=== PATIENT | female | born 1940 | race Caucasian/White ===

== ENCOUNTER 2019-08-07 08:56 | Emergency (ER) | payer MEDICARE ==
[2019-08-07 09:08] VITALS: BP 148/93
--- NOTE | 2019-08-07 10:09 | UC ---
Skin Complaint HPI - HPI Summary HPI Summary: 79 year old with bee sting to right ankle on Monday. Patient was working outside when she was stung by a yellow jacket, had to swat insect off her, immediate pain and swelling around outside ankle. She noted swelling afterwards , which has increased mildly since that time. Denies pain, no difficulty walking, minimal discomfort with moving against swelling. NO other complaints , no throat swelling, no SOB - History of Current Complaint Chief Complaint: UCSkin Time Seen by Provider: 08/07/19 10:09 Stated Complaint: BEE STING Hx Obtained From: Patient ?: No Onset/Duration: Sudden Onset Skin Exposure Onset/Duration: Days Ago - monday Onset Severity: Mild Current Severity: Mild Pain Intensity: 3 Pain Scale Used: 0-10 Numeric Location: Discrete - right ankle, laterally - Allergy/Home Medications Allergies/Adverse Reactions: Allergies Allergy/AdvReac Type Severity Reaction Status Date / Time peanut Allergy Diarrhea Verified 08/07/19 09:02 sulfamethoxazole Allergy Rash Verified 08/07/19 09:02 [From Bactrim] trimethoprim [From Bactrim] Allergy Rash Verified 08/07/19 09:02 Home Medications: Home Medications Diphenhydramine HCl/Zinc Acet [Benadryl Itch Stopping Crm] 28.3 gm TP ONCE 08/07 [History Confirmed 08/07/19] diPHENhydraMINE PO* [Benadryl PO 25 MG TAB*] 25 mg PO Q6H PRN 08/07/19 [History Confirmed 08/07/19] PMH/Surg Hx/FS Hx/Imm Hx Previously Healthy: Yes - Surgical History Surgical History: Yes Surgery Procedure, Year, and Place: HYSTERECTOMY, 1994, [facility] – [place] - Family History Known Family History: Positive: Non-Contributory - Social History Alcohol Use: None Substance Use Type: None Smoking Status (MU): Never Smoked Tobacco Have You Smoked in the Last Year: No Review of Systems All Other Systems Reviewed And Are Negative: Yes Constitutional: Positive: Fatigue Skin: Positive: Rash - swelling, redness ENT: Negative: Sore Throat Respiratory: Positive: Negative. Negative: Shortness Of Breath, Cough Neurological: Positive: Negative Psychological: Positive: Negative Is Patient Immunocompromised?: No Physical Exam Triage Information Reviewed: Yes Appearance: Well-Appearing, No Pain Distress, Well-Nourished Vital Signs: Initial Vital Signs Temp 97.8 F 08/07/19 09:03 Pulse 84 08/07/19 09:03 Resp 16 08/07/19 09:03 BP 148/93 08/07/19 09:03 Pulse Ox 98 08/07/19 09:03 Vital Signs Reviewed: Yes Eyes: Positive: Conjunctiva Clear ENT: Positive: Hearing grossly normal Musculoskeletal Exam: Normal Neurological Exam: Normal Neurological: Positive: Other: - SITLT distal to ankle Psychological Exam: Normal Skin: Positive: Other - lateral ankle to toes with moderate edema, non-pitting, minimal erythema, non-tender, on lateral aspect of foot. FUll ROM of toes, ankle against resistence without pain. minimal warmth. PT 2+. Skin intact, no drainage, vesicles seen. Course/Dx - Course Course Of Treatment: Allergic reaction to insect sting - Prednisone 30mg daily x 3 days - Continue to monitor area for increased redness, swelling, pain- possible signs of infection, go to ER or return for evaluation - Follow up with Dr. Matthews as needed - Increase fluid intake - Elevate leg, ice as needed - Benadryl for itch as needed - Differential Diagnoses - Skin Complaint Differential Diagnoses: Angioedema, Cellulitis, Viral Exanthem - Diagnoses Provider Diagnosis: Allergic reaction to bee sting Discharge ED - Sign-Out/Discharge Documenting (check all that apply): Patient Departure All imaging exams completed and their final reports reviewed: No Studies - Discharge Plan Condition: Good Disposition: HOME Prescriptions: predniSONE TAB* [Deltasone 10 MG TAB*] 3 tab PO DAILY #9 tab Patient Education Materials: General Allergic Reaction (ED) Referrals: Neyda Matthews MD [Primary Care Provider] - Additional Instructions: Allergic reaction to insect sting - Prednisone 30mg daily x 3 days - Continue to monitor area for increased redness, swelling, pain- possible signs of infection, go to ER or return for evaluation - Follow up with Dr. Matthews as needed - Increase fluid intake - Elevate leg, ice as needed - Benadryl for itch as needed - Billing Disposition and Condition Condition: GOOD Disposition: Home
== END 2019-08-07 10:30 | disposition home or self-care (01) ==
LOC: UCEAST 08:56
DX: T63.441A Toxic effect of venom of bees, accidental (unintentional), initial encounter (principal); Y92.9 Unspecified place or not applicable; Z88.2 Allergy status to sulfonamides
CPT/HCPCS: 99202; G0463

== ENCOUNTER 2023-12-09 18:26 | Inpatient (IN) ==
[2023-12-09] MEDS ORDERED: Tetan/Diph/Pertus SYR(Tdap) 0.5 ML SYR(BOOSTRIX) use SYR contains LATEX IM ONE (22:03)
[2023-12-09] MEDS ORDERED: Al Hydrox/Mg Hydrox/Simet LIQ 30 ML UDC PO PRN (22:41)
[2023-12-09] MEDS: Enoxaparin 40 MG/0.4 ML SYR SUBCUT SCH (23:20)
[2023-12-09 23:51] LABS: Hematocrit 34.2 % (35-45); Hemoglobin 11.8 g/dL (11.5-14.3); Mean Corpuscular Hemoglobin 29.8 pg (27-33); Mean Corpuscular Hgb Conc 34.6 g/dL (31-36); Mean Corpuscular Volume 86.2 fL (80-97); Mean Platelet Volume 8.9 fL (7.5-11.2); Platelet Count 202 10^3/uL (150-450); Red Blood Count 3.96 10^6/uL (3.63-4.92); Red Cell Distribution Width 14.4 % (12-17); White Blood Count 8.1 10^3/uL (3.8-11.8)
[2023-12-10] LABS: Creatinine, Serum 0.86 mg/dL (0.51-0.95); Potassium 3.9 mmol/L (3.5-5.0); eGFR CKD-EPI 67.4 (>60)
[2023-12-10 00:18] LABS: INR 1.1 (0.83-1.13)
[2023-12-10] MEDS ORDERED: Polyethylene Glycol 3350 17 GM PACKET PO PRN (05:51)
[2023-12-10] MEDS ORDERED: Morphine 2 MG/ML SYRINGE IV PRN (06:10)
[2023-12-10 08:01] LABS: ABS Eosinophils 0.1 10^3/uL (0.0-0.5); ABS Lymphocytes 0.7 10^3/uL (1.0-4.8); ABS Monocytes 0.6 10^3/uL (0.0-0.9); ABS Neutrophils 3.9 10^3/uL (1.5-7.6); Eosinophil % 2.2 %; Hematocrit 34.9 % (35-45); Hemoglobin 11.9 g/dL (11.5-14.3); Lymphocyte % 13.3 %; Mean Corpuscular Hemoglobin 29.3 pg (27-33); Mean Corpuscular Volume 86.2 fL (80-97); Mean Platelet Volume 8.8 fL (7.5-11.2); Platelet Count 187 10^3/uL (150-450); Red Blood Count 4.05 10^6/uL (3.63-4.92); Red Cell Distribution Width 14.5 % (12-17); White Blood Count 5.4 10^3/uL (3.8-11.8)
[2023-12-10 08:16] LABS: Calcium 8.8 mg/dL (8.6-10.3); Creatinine, Serum 0.74 mg/dL (0.51-0.95); Potassium 3.7 mmol/L (3.5-5.0); eGFR CKD-EPI 80.7 (>60)
[2023-12-10] MEDS ORDERED: fentaNYL 100 mcg/2 ml 50 MCG/ML VIAL ONE ×2 (09:38→11:46)
[2023-12-10] MEDS ORDERED: Ondansetron 4 mg VIAL 2 MG/ML 2 ml VIAL ONE (09:38)
[2023-12-10] MEDS ORDERED: Midazolam 2 mg/2 ml VIAL 1 mg/ml 2 ml VIAL (2 mg) ONE (09:38)
[2023-12-10] MEDS ORDERED: Phenylephrine 40 mcg/mL 10mL (400mcg) SYRINGE ONE ×2 (09:38→11:24)
[2023-12-10] MEDS ORDERED: Dexamethasone IV 4 MG/ML VIAL 1 ml VIAL ONE (09:38)
[2023-12-10] MEDS ORDERED: Lidocaine 2% PF 5 ML VIAL ONE (09:38)
[2023-12-10] MEDS ORDERED: Propofol 10 MG/ML 20 ML BTL ONE (09:38)
[2023-12-10] MEDS ORDERED: ceFAZolin 2 GM in NS PREMIX 2 GM/100 ML BAG IVPB ONE (09:55)
[2023-12-10] MEDS ORDERED: Bupivacaine 0.5% SDV PF 30ML VIAL ONE (10:51)
[2023-12-10] MEDS ORDERED: ROPIVACAINE 5 MG/ML 30 ML BTL (0.5%) ONE (10:53)
[2023-12-10] MEDS ORDERED: Acetaminophen IV 1 GM/100ML 1,000 MG/100 ML BAG IV ONE (11:11)
[2023-12-10] MEDS ORDERED: fentaNYL 100 mcg/2 ml 50 MCG/ML VIAL IV PRN (11:13)
[2023-12-10] MEDS ORDERED: HYDROmorphone 1 MG/1 ML SYRINGE IV PRN (11:13)
[2023-12-10] MEDS ORDERED: Naloxone 0.4 mg VIAL 0.4 mg/ml 1 ml VIAL IV PRN (11:13)
[2023-12-10] MEDS ORDERED: Labetalol IV 5 MG/ML 20 ml VIAL ONE (12:40)
[2023-12-10] MEDS ORDERED: Labetalol IV 5 MG/ML 20 ml VIAL IV PUSH ONE (12:42)
[2023-12-10] MEDS: ceFAZolin 1 GM ADVAN 1 GM in NS 0.9% 50 ML 50 ML IVPB SCH (18:05)
[2023-12-10] MEDS: Enoxaparin 40 MG/0.4 ML SYR SUBCUT SCH (22:44)
[2023-12-11] MEDS: ceFAZolin 1 GM ADVAN 1 GM in NS 0.9% 50 ML 50 ML IVPB SCH ×2 (02:43→10:23)
[2023-12-11 06:26] LABS: ABS Lymphocytes 0.5 10^3/uL (1.0-4.8); ABS Monocytes 0.6 10^3/uL (0.0-0.9); ABS Neutrophils 7.5 10^3/uL (1.5-7.6); Hematocrit 32.7 % (35-45); Hemoglobin 11.1 g/dL (11.5-14.3); Lymphocyte % 6.3 %; Mean Corpuscular Hemoglobin 29.4 pg (27-33); Mean Corpuscular Hgb Conc 34.1 g/dL (31-36); Mean Corpuscular Volume 86.2 fL (80-97); Mean Platelet Volume 9.3 fL (7.5-11.2); Platelet Count 182 10^3/uL (150-450); Red Blood Count 3.79 10^6/uL (3.63-4.92); Red Cell Distribution Width 14.6 % (12-17); White Blood Count 8.6 10^3/uL (3.8-11.8)
[2023-12-11 06:33] LABS: INR 1.16 (0.83-1.13)
[2023-12-11 06:45] LABS: Albumin 3.4 g/dL (3.2-5.2); Albumin/Globulin Ratio 1.3 (1-3); Calcium 8.9 mg/dL (8.6-10.3); Creatinine, Serum 0.78 mg/dL (0.51-0.95); Globulin 2.6 g/dL (2-4); Potassium 3.9 mmol/L (3.5-5.0); Total Bilirubin 0.4 mg/dL (0.2-1.0); eGFR CKD-EPI 75.8 (>60)
[2023-12-11] MEDS: Magnesium Hydroxide LIQ 30 ML UDC PO PRN (19:57)
[2023-12-11] MEDS: Enoxaparin 40 MG/0.4 ML SYR SUBCUT SCH (22:27)
[2023-12-12 06:08] LABS: ABS Basophils 0.1 10^3/uL (0.0-0.1); ABS Eosinophils 0.2 10^3/uL (0.0-0.5); ABS Lymphocytes 1.1 10^3/uL (1.0-4.8); ABS Monocytes 0.6 10^3/uL (0.0-0.9); ABS Neutrophils 3.3 10^3/uL (1.5-7.6); Eosinophil % 2.9 %; Hemoglobin 11.5 g/dL (11.5-14.3); Lymphocyte % 21.7 %; Mean Corpuscular Hemoglobin 29.4 pg (27-33); Mean Corpuscular Hgb Conc 33.8 g/dL (31-36); Mean Corpuscular Volume 87.1 fL (80-97); Mean Platelet Volume 9.4 fL (7.5-11.2); Platelet Count 192 10^3/uL (150-450); Red Blood Count 3.91 10^6/uL (3.63-4.92); Red Cell Distribution Width 14.7 % (12-17); White Blood Count 5.3 10^3/uL (3.8-11.8)
[2023-12-12 06:24] LABS: Calcium 8.4 mg/dL (8.6-10.3); Creatinine, Serum 0.72 mg/dL (0.51-0.95); Magnesium 2.2 mg/dL (1.9-2.7); Potassium 3.9 mmol/L (3.5-5.0); eGFR CKD-EPI 83.4 (>60)
[2023-12-12] MEDS: Magnesium Hydroxide LIQ 30 ML UDC PO PRN (08:57)
[2023-12-12 10:20] VITALS: BP 123/81
== END 2023-12-12 13:40 | disposition home or self-care (01) | DRG 482 ==
LOC: ED 18:26 → EDHOLD 22:41 → SUATTDRO 22:41 → SSU 12-10 00:13
PROVIDERS: ADMIT Internal Medicine; ATTEND Internal Medicine